=== PATIENT | male | born 1975 | race Caucasian/White ===

== ENCOUNTER 2016-07-21 07:18 | Emergency (ER) | payer MEDICAID ==
[~2016-07-21] VITALS: Ht 185.4 cm; Wt 95.4 kg
[2016-07-21] MEDS ORDERED: HYDROCODONE/ACETAMINOPHEN 5-325 MG TABLET PO ONE (07:45)
[2016-07-21 09:46] VITALS: BP 129/72
== END 2016-07-21 10:08 | disposition home or self-care (01) ==
LOC: EMS 07:20
DX: S42.022A Displaced fracture of shaft of left clavicle, initial encounter for closed fracture (principal); S62.521A Displaced fracture of distal phalanx of right thumb, initial encounter for closed fracture; W05.1XXA Fall from non-moving nonmotorized scooter, initial encounter; Y93.89 Activity, other specified; Y92.89 Other specified places as the place of occurrence of the external cause; Y99.8 Other external cause status
CPT/HCPCS: 29130; 73000; 73140; 96372; 99284; J0690

== ENCOUNTER 2016-07-27 13:13 | Emergency (ER) | payer MEDICAID ==
[~2016-07-27] VITALS: Ht 182.9 cm; Wt 95.5 kg
[2016-07-27] MEDS ORDERED: CEPHA2505L PO (13:27)
[2016-07-27] MEDS ORDERED: HYDR-309 PO (13:27)
[2016-07-27] MEDS ORDERED: HYDROCODONE/ACETAMINOPHEN 5-325 MG TABLET PO ONE (15:15)
[2016-07-27 15:55] VITALS: BP 139/85
== END 2016-07-27 15:58 | disposition home or self-care (01) ==
LOC: EMS 13:16
DX: S20.212A Contusion of left front wall of thorax, initial encounter (principal); V89.2XXA Person injured in unspecified motor-vehicle accident, traffic, initial encounter; Y93.89 Activity, other specified; Y92.413 State road as the place of occurrence of the external cause; Y99.9 Unspecified external cause status
CPT/HCPCS: 99283